=== PATIENT | male | born 1995 | race African-American/Black ===

== ENCOUNTER 2016-12-02 09:50 | Emergency (ER) | payer MEDICAID ==
[~2016-12-02] VITALS: Ht 198.1 cm; Wt 91.0 kg
[2016-12-02 11:00] VITALS: BP 130/99
== END 2016-12-02 13:27 | disposition home or self-care (01) ==
LOC: ER 11:02
DX: S62.306A Unspecified fracture of fifth metacarpal bone, right hand, initial encounter for closed fracture (principal); W22.01XA Walked into wall, initial encounter; Y93.89 Activity, other specified; Y99.8 Other external cause status; Y92.89 Other specified places as the place of occurrence of the external cause
CPT/HCPCS: 29125; 73110; 73130; 99284